=== PATIENT | female | born 1955 | race Caucasian/White ===

== ENCOUNTER 2017-07-08 07:24 | Day surgery (SDC) | payer BC, OTHER ==
[~2017-07-08 07:24] MED LIST: EPINEPHRINE INJ/PF 1 MG/1 ML AMPULE ONE; KETOROLAC TROMETHAMINE 0.45% 4 DROP/0.4 ML DROPERETTE OS PRN; LIDOCAINE 1% INJ-PF (10 MG/ML) 30 ML SDV ONE
[2017-07-08] MEDS ORDERED: CHONDR SU A NA/HYALUR INTRAOC KIT (SURGICARE) ONE (07:25)
[2017-07-08] MEDS: CYCLOPENTOLATE 0.2%/PHENYLEPHRINE 1% OPH SOLN 2 ML OS PRN ×3 (07:35→08:02)
[2017-07-08] MEDS: TROPICAMIDE 1% OPH SOLN 3 ML OS PRN ×3 (07:35→08:02)
[2017-07-08] MEDS: BESIFLOXACIN HCL 0.6% OPH SUSP 5 ML BOTTLE OS PRN ×3 (07:36→08:28)
[2017-07-08] MEDS: TETRACAINE HCL 0.5% OPH SOLN 2 ML OS PRN ×3 (07:37→08:05)
[2017-07-08] MEDS ORDERED: FENTANYL CITRATE INJ/PF 100 MCG/2 ML AMPUL ONE (07:43)
[2017-07-08] MEDS ORDERED: MIDAZOLAM 2 MG/2 ML INJ ONE (07:43)
--- NOTE | 2017-07-08 22:03 | [facility] OPERATIVE REPORT E ---
[facility] Operative Report NAME: FANG RODRIGUES AGE: 62Y DATE OF SURGERY: 07/08/2017 ROOM: PREOPERATIVE DIAGNOSIS: CATARACT, LEFT EYE. POSTOPERATIVE DIAGNOSIS: CATARACT, LEFT EYE. OPERATION: Cataract extraction with intraocular lens implant of the left eye. SURGEON: JAI VALENTINE M.D. ANESTHESIA: Topical. PROCEDURE: After obtaining appropriate consent, the patient's left eye was prepped and draped in sterile fashion as well as the surgeon in a sterile manner and cataract surgery was started. First a paracentesis blade was used to make a small side-port incision. Viscoelastic was used to inflate the anterior chamber. Next a 2.4 mm incision was made with the paracentesis blade. A continuous capsulorrhexis incision was made using a cystotome and Utrata forceps. Following this hydrodissection was carried out to make the lens fully loose and mobile and it was rotated 90 degrees. Following this, a xpamin-mdo-iqqiaoa technique was used to phacoemulsify the lens with a CDE of 6.12. The remaining cortex was removed with irrigation/aspiration. Provisc was instilled into the capsular bag to inflate the bag. A SN60WF, 24.0 diopter lens was placed. The remaining viscoelastic material was removed with irrigation/aspiration. Following this, a 10-0 nylon suture was used to close the incision and it was found to be watertight. Vigamox was instilled in the eye and a protective shield was placed over the eye. The patient returned to the postoperative recovery in stable condition. DICTATING PHYSICIAN: JAI VALENTINE M.D. 5020M [id number] PHY#: [id number] 2014 ID: [id number] JOB#: [id number] ACCT: [id number] cc:JAI VALENTINE M.D. >
--- NOTE | 2017-07-08 22:08 | [facility] DISCHARGE SUMMARY E ---
[facility] Discharge Summary NAME: FANG RODRIGUES AGE: 62Y ADMITTED: 07/08/2017 DISCHARGED: 07/08/2017 HOSPITAL COURSE: This is a 62-year-old female who underwent cataract extraction of the left eye. DIAGNOSIS: CATARACT, LEFT EYE. She underwent surgery because she was having difficulty seeing road signs. DISCHARGE INSTRUCTIONS: She should be on a regular diet. No bending at her waist, no heavy lifting. She should use Besivance, Ilevro, and Durezol at 3 p.m. and 8 p.m. and sleep with a rigid shield. I will see her for her 1 day postoperative tomorrow. DICTATING PHYSICIAN: JAI VALENTINE M.D. [id number] [id number] PHY#: [id number] 2014 ID: [id number] JOB#: [id number] ACCT: [id number] cc:JAI VALENTINE M.D. >
== END 2017-07-08 09:02 | disposition home or self-care (01) ==
LOC: SC 07:24
PROVIDERS: ATTEND Internal Medicine
PROC: 08RK3JZ Replacement of Left Lens with Synthetic Substitute, Percutaneous Approach (ICD-10-PCS; principal; 2017-07-08 08:00)
DX: H25.813 Combined forms of age-related cataract, bilateral (principal); H40.033 Anatomical narrow angle, bilateral; H43.813 Vitreous degeneration, bilateral; E11.3293 Type 2 diabetes mellitus with mild nonproliferative diabetic retinopathy without macular edema, bilateral; I10 Essential (primary) hypertension; K74.60 Unspecified cirrhosis of liver; E78.00 Pure hypercholesterolemia, unspecified; Z87.891 Personal history of nicotine dependence; Z79.02 Long term (current) use of antithrombotics/antiplatelets; Z79.899 Other long term (current) drug therapy
CPT/HCPCS: 66984; V2632; J2250; J3490 ×2; J0171; J3010; 142